=== PATIENT | male | born 1995 | race Caucasian/White ===

== ENCOUNTER 2020-03-21 19:35 | Emergency (ER) | payer SELFPAY ==
[~2020-03-21] VITALS: Ht 22.9 cm; Wt 96.4 kg
[2020-03-21] MEDS ORDERED: ZITHROMAX 250M250 MG PO (23:23)
[2020-03-22 00:10] VITALS: BP 133/82; PULSE 96; TEMP 100.1
== END 2020-03-22 00:10 | disposition home or self-care (01) ==
LOC: COL.ER 19:35
DX: R50.9 Fever, unspecified (principal); R05 Cough; M62.81 Muscle weakness (generalized); R51.9 Headache, unspecified; J45.909 Unspecified asthma, uncomplicated; Z20.828 Contact with and (suspected) exposure to other viral communicable diseases; Z87.891 Personal history of nicotine dependence; Z88.6 Allergy status to analgesic agent
CPT/HCPCS: J7030